=== PATIENT | female | born 1980 | race American Indian/Alaskan Native ===

== ENCOUNTER 2016-08-14 08:19 | Emergency (ER) | payer MEDICAID ==
[2016-08-14 08:19] VITALS: BMI 48.0
[2016-08-14 08:37] VITALS: BP 141/89; PULSE 82; RESP 20; TEMP 97.4; O2SAT 100
--- NOTE | 2016-08-14 08:43 | C.PDOC ---
History Of Present Illness L 3 TOE INJURY ONSET YEST. PS INJURED WHILE GOING DOWN STAIRS. NO OTHER ASSOC SX. +NEW ONSET BRUISING. MOD RELIEF W TYL #3 EXAM NAD EXT L FOOT +BRUISING DISTAL L 3 TOE. NAIL CLEAR, NO SUBUNG HEMATOMA. NO DEFORM. NO FOOT OR ANKLE TEND, SWELL MDM PT OFFERED XRAY BUT DEFERS @ THIS TIME. FLACO TAPE, POST OP SHOE, NSAIDS W TYL # 3 Time Seen by Provider: 08/14/16 08:38 Chief Complaint (Nursing): Lower Extremity Problem/Injury Past Medical History Vital Signs: Last Vital Signs Temp 97.4 F L 08/14/16 08:36 Pulse 82 08/14/16 08:36 Resp 20 08/14/16 08:36 BP 141/89 08/14/16 08:36 Pulse Ox 100 08/14/16 08:36 - Medical History PMH: Anemia, HTN Surgical History: - [facility] Procedures EXCISION OF BILATERAL FALLOPIAN TUBES, OPEN APPROACH (03/03/16) EXTRACTION OF POC, LOW CERVICAL, OPEN APPROACH (03/03/16) Family History: States: Unknown Family Hx - Social History Hx Tobacco Use: No Hx Alcohol Use: No Hx Substance Use: No - Immunization History Hx Tetanus Toxoid Vaccination: No Hx Influenza Vaccination: No Hx Pneumococcal Vaccination: No ED Course And Treatment O2 Sat by Pulse Oximetry: 100 Disposition Counseled Patient/Family Regarding: Diagnosis, Need For Followup - Disposition Referrals: YOUR,PMD [Other] Disposition: HOME/ ROUTINE Disposition Time: 08:43 Condition: IMPROVED Additional Instructions: TAKE MOTRIN 3 PILLS EVERY 6-8 HRS NEEDED FOR PAIN. ICE, ELEVATION. Instructions: Toe Fracture (ED) Forms: Work Excuse - Clinical Impression Clinical Impression: Toe injury Orthopedic Care Application Of:: Toe-flaco tape
== END 2016-08-14 08:53 | disposition home or self-care (01) ==
LOC: C.ER 08:19
DX: S90.122A Contusion of left lesser toe(s) without damage to nail, initial encounter (principal); X58.XXXA Exposure to other specified factors, initial encounter; Y92.89 Other specified places as the place of occurrence of the external cause

== ENCOUNTER 2017-07-28 08:39 | Day surgery (SDC) | payer OTHER ==
[2017-07-28 09:21] VITALS: TEMP 97.6
--- NOTE | 2017-07-28 10:54 | CP.SDSHP ---
Same Day Surgery H & P - History Proposed Procedure: US guided FNA of right thyroid nodule Pre-Op Diagnosis: Thyroid nodule - Allergies Allergies: Allergies azithromycin [From Zithromax Z-Maximus] Allergy (Verified 03/03/16 07:23) SWELLING - Physical Exam Vital Signs: Vital Signs 07/28/17 09:03 Temperature 97.6 F Pulse Rate 75 Respiratory 20 Rate Blood Pressure 123/77 O2 Sat by Pulse 97 Oximetry Mental Status: Alert & Oriented x3 - Impression Impression: Pt with 2.4 cm complex right thyroid nodule. Plan US guided FNA. Pt. Evaluated Today:Candidate for Anesthesia & Procedure: No - Date & Time Date: 07/28/17 Time: 10:00 Short Stay Discharge - Short Stay Discharge Admitting Diagnosis/Reason for Visit: DX: COMPLEX THYROID CYST Disposition: HOME/ ROUTINE
--- NOTE | 2017-07-28 10:57 | PCM.SURG1 ---
Surgeon's Initial Post Op Note - Surgeon's Notes Surgeon: Aashish Kaminski MD Merchandising Representative: NONE Type of Anesthesia: Local Pre-Operative Diagnosis: Thyroid nodule Operative Findings: 2.4 complex right thyroid nodule Post-Operative Diagnosis: thyroid nodule Operation Performed: US guided FNA of right thyroid nodule Specimen/Specimens Removed: 25g FNA x5 nodules Estimated Blood Loss: EBL {In ML}: 0 Blood Products Given: N/A Drains Used: No Drains Post-Op Condition: Good Date of Surgery/Procedure: 07/28/17 Time of Surgery/Procedure: 10:55
[2017-07-28 11:15] VITALS: BP 114/79; PULSE 63; RESP 18; O2SAT 98
--- NOTE | 2017-07-28 12:06 | US ---
PROCEDURE: Date of Procedure: 07/28/2017 PROCEDURE: 1. Ultrasound guided FNA of right thyroid nodule, CPT 81466 2. Ultrasound guidance for FNA, 41850 Medications: 3cc 1% Lidocaine HISTORY: Enlarged right thyroid nodule. TECHNIQUE: Following informed consent and procedure time-out, a limited ultrasound patient's neck confirmed the presence of a 2.4 cm complex right thyroid nodule which is solid and cystic. After the patient's neck was prepped and draped in the usual sterile fashion, the skin was anesthetized with 1% lidocaine. Ultrasound-guided fine needle aspiration was then performed of the dominant right thyroid nodule. A total of 5 passes were made into the nodule with 25 gauge needle under ultrasound guidance. The FNA specimen was sent for routine pathology. Post biopsy ultrasound showed no hematoma. IMPRESSION: Ultrasound-guided FNA of the dominant right thyroid nodule.
== END 2017-07-28 11:20 | disposition home or self-care (01) ==
LOC: C.SPRAD 08:39
PROVIDERS: ATTEND Radiology Vascular & Interventional Radiology
DX: E04.1 Nontoxic single thyroid nodule (principal)

== ENCOUNTER 2018-04-05 18:27 | Emergency (ER) | payer SELFPAY ==
[2018-04-05 18:27] VITALS: BMI 48.0
--- NOTE | 2018-04-05 20:23 | C.PDOC ---
History Of Present Illness Patient is a 37 year old female who presents to the ED c/o right posterior neck pain that starts at the base of the skull and extends into her right shoulder and has been present for a week. Patient states that she doesn't remember what she was doing at the onset of her sx and the pain worsens with head movement side to side. She has intermittently taken a muscle relaxer and ibuprofen for her sx, but has taken none today. Patient denies any falls, trauma, CP, SOB, nausea, vomiting, visual changes, or paresthesia. Time Seen by Provider: 04/05/18 19:34 Chief Complaint (Nursing): Headache History Per: Patient History/Exam Limitations: no limitations Onset/Duration Of Symptoms: Days (one week) Current Symptoms Are (Timing): Still Present Quality: "Pain" Preceeding Symptoms: denies: Visual Disturbances Associated Symptoms: denies: Nausea, Vomiting Recent travel outside of the [place]: No Additional History Per: Patient Past Medical History Reviewed: Historical Data, Nursing Documentation, Vital Signs Vital Signs: Last Vital Signs Temp 97.9 F 04/05/18 18:38 Pulse 76 04/05/18 18:38 Resp 20 04/05/18 18:38 BP 151/72 H 04/05/18 18:38 Pulse Ox 100 04/05/18 18:38 - Medical History PMH: Anemia, HTN Surgical History: - [facility] Procedures EXCISION OF BILATERAL FALLOPIAN TUBES, OPEN APPROACH (03/03/16) EXTRACTION OF POC, LOW CERVICAL, OPEN APPROACH (03/03/16) Family History: States: Unknown Family Hx - Social History Hx Tobacco Use: No Hx Alcohol Use: No Hx Substance Use: No - Immunization History Hx Tetanus Toxoid Vaccination: Yes Hx Influenza Vaccination: Yes Hx Pneumococcal Vaccination: No Review Of Systems Eyes: Negative for: Vision Change Cardiovascular: Negative for: Chest Pain Respiratory: Negative for: Shortness of Breath Gastrointestinal: Negative for: Nausea, Vomiting Musculoskeletal: Positive for: Neck Pain, Shoulder Pain (right ) Neurological: Negative for: Other (paresthesia) Physical Exam - Physical Exam Appears: Non-toxic, No Acute Distress, Other (sleeping but easily arousable, comfortable ) Skin: Normal Color, Warm, Dry Head: Atraumatic, Normacephalic Eye(s): bilateral: Other (no nystagmus ) Oral Mucosa: Moist Neck: Normal ROM, Supple Chest: Symmetrical, No Deformity Cardiovascular: Rhythm Regular, No Murmur Respiratory: Normal Breath Sounds, No Rales, No Rhonchi, No Wheezing Gastrointestinal/Abdominal: Soft, No Tenderness, No Guarding, No Rebound Extremity: Normal ROM, Capillary Refill (less than 2 seconds) Pulses: Left Dorsalis Pedis: Normal, Right Dorsalis Pedis: Normal Neurological/Psych: Oriented x3, Normal Speech, Normal Cognition ED Course And Treatment O2 Sat by Pulse Oximetry: 100 (on RA) Pulse Ox Interpretation: Normal Medical Decision Making Medical Decision Making: Plan: POC Urine ordered and reviewed. Flexeril 10mg PO and Toradol 30mg IM administered. 22:26 - Reevaluated patient who reports she is feeling better and wishes to be D/C home. Patient will follow up with PMD Disposition Counseled Patient/Family Regarding: Diagnosis, Need For Followup - Disposition Referrals: Shanelle Patel MD [Staff Provider] - Disposition: HOME/ ROUTINE Disposition Time: 22:30 Condition: IMPROVED Additional Instructions: FABIAN GA, thank you for letting us take care of you today. Your provider was Alycia Cortez MD and you were treated for HEADACHE. The emergency medical care you received today was directed at your acute symptoms. If you were prescribed any medication, please fill it and take as directed. It may take several days for your symptoms to resolve. Return to the Emergency Department if your symptoms worsen, do not improve, or if you have any other problems. Please contact your doctor in 1-2 days for a follow up appointment. Bring any paperwork you were given at discharge with you along with any medications you are taking to your follow up visit. Our treatment cannot replace ongoing medical care by a primary care provider outside of the emergency department. Thank you for allowing the [facility] team to be part of your care today. Prescriptions: Cyclobenzaprine [Cyclobenzaprine HCl] 10 mg PO TID PRN #15 tab PRN Reason: Muscle Spasm Naproxen [Naprosyn] 500 mg PO BID PRN #30 tablet PRN Reason: Pain, Moderate (4-7) Instructions: Muscle Spasms (DC), Headache, Adult (DC) Forms: [employer] Connect (Ind[place]ian), General Discharge Instructions - Clinical Impression Clinical Impression: Headache, Muscle spasms of neck - Scribe Statement The provider has reviewed the documentation as recorded by the Scribe Shante Pych All medical record entries made by the Jose were at my direction and personally dictated by me. I have reviewed the chart and agree that the record accurately reflects my personal performance of the history, physical exam, medical decision making, and the department course for this patient. I have also personally directed, reviewed, and agree with the discharge instructions and disposition.
[2018-04-05 23:01] VITALS: BP 129/83; PULSE 70; RESP 20; TEMP 98.9; O2SAT 99
== END 2018-04-05 23:01 | disposition home or self-care (01) ==
LOC: C.ER 18:27
DX: M62.838 Other muscle spasm (principal); R51 Headache
CPT/HCPCS: 81025; 96372; 99285; J1885